=== PATIENT | female | born 1940 | race Caucasian/White ===

== ENCOUNTER 2016-10-30 17:06 | Emergency (ER) | payer SELFPAY ==
[~2016-10-30] VITALS: Ht 157.5 cm; Wt 108.9 kg
[2016-10-30 17:08] VITALS: BP 105/64
== END 2016-10-30 17:32 | disposition left against medical advice (07) ==
LOC: ER 17:10
DX: R42 Dizziness and giddiness (principal); R53.1 Weakness; Z53.21 Procedure and treatment not carried out due to patient leaving prior to being seen by health care provider
CPT/HCPCS: 93005